=== PATIENT | female | born 1970 | race Caucasian/White ===

== ENCOUNTER 2020-10-18 18:43 | Emergency (ER) | payer OTHER ==
[~2020-10-18 18:43] MED LIST: BENTYL 20MG TAB20 MG PO; OMNICEF 300 MG300 MG PO; ZOFRAN ODT 4 MG4 MG PO
[2020-10-18 20:27] LABS: HEMOGLOBIN 14.4 gm/dl (12.3-15.3); RED BLOOD COUNT 4.49 M/UL (4.00-5.10); WHITE BLOOD COUNT 7.5 K/UL (4.5-11.0)
[2020-10-18 20:42] LABS: BUN/CREATININE RATIO 9 (0-10)
== END 2020-10-19 17:27 | disposition other institution (70) ==
LOC: ER1 18:43
PROVIDERS: Physician Assistant
DX: F32.9 Major depressive disorder, single episode, unspecified (principal); F43.10 Post-traumatic stress disorder, unspecified; I25.10 Atherosclerotic heart disease of native coronary artery without angina pectoris; Z20.822 Contact with and (suspected) exposure to COVID-19; F17.210 Nicotine dependence, cigarettes, uncomplicated
CPT/HCPCS: 36415; 80048; 80307; 83735; 85025; 99285; G0480; U0002